=== PATIENT | female | born 2000 | race African-American/Black ===

== ENCOUNTER 2023-04-15 13:32 | Emergency (ER) | payer MEDICAID ==
[~2023-04-15] VITALS: Ht 162.6 cm; Wt 63.0 kg
[2023-04-15] MEDS ORDERED: ALBUTEROL (0.083%) 2.5MG/3ML NEB HHN STA (16:11)
[2023-04-15] MEDS ORDERED: PREDNISONE 20MG TABLET PO STA (16:11)
[2023-04-15] MEDS ORDERED: P50 MT (16:12)
[2023-04-15] MEDS ORDERED: ALBU05 NEB (16:12)
[2023-04-15] MEDS ORDERED: ALBU6.7H3 INH (16:12)
[2023-04-15 17:16] VITALS: BP 121/77
== END 2023-04-15 17:17 | disposition home or self-care (01) ==
LOC: ER 13:32
DX: J45.901 Unspecified asthma with (acute) exacerbation (principal)
CPT/HCPCS: 71045; 94640; 99283; J7512; Z7610

== ENCOUNTER 2023-04-18 10:39 | Emergency (ER) | payer MEDICAID ==
[~2023-04-18] VITALS: Ht 157.5 cm; Wt 62.1 kg
[~2023-04-18 10:39] MED LIST: ALBU05 NEB; ALBU6.7H3 INH; P50 MT
[2023-04-18 10:43] VITALS: BP 143/106
[2023-04-18] MEDS ORDERED: NEBU-281 MC (11:33)
== END 2023-04-18 11:43 | disposition home or self-care (01) ==
LOC: ER 10:39
DX: Z00.00 Encounter for general adult medical examination without abnormal findings (principal); Z79.899 Other long term (current) drug therapy
CPT/HCPCS: 99281

== ENCOUNTER 2024-08-15 14:44 | Emergency (ER) | payer MEDICAID ==
[~2024-08-15] VITALS: Ht 157.5 cm; Wt 73.0 kg
[~2024-08-15 14:44] MED LIST changes: +NEBU-281 MC
[2024-08-15 14:47] VITALS: BP 161/102; PULSE 103; RESP 16; TEMP 99; O2SAT 99
[2024-08-15 16:22] LABS: BASOPHILS % 0.2 % (0.0-2.0); EOSINOPHILS % 0.6 % (0.0-5.0); HEMATOCRIT. 42.7 % (36.0-48.0); HEMOGLOBIN. 14.3 g/dL (12.0-16.0); LYMPHOCYTES % 11.2 % (20.0-50.0); MEAN CORPUSCULAR HEMOGLOBIN 29.8 pg (28.0-32.0); MEAN CORPUSCULAR HGB CONC 33.5 g/dL (31.0-37.0); MEAN CORPUSCULAR VOLUME 88.8 fL (81.0-99.0); MEAN PLATELET VOLUME 8.5 fl (7.4-10.4); MONOCYTES % 6.1 % (2.0-8.0); NEUTROPHILS % 81.9 % (40.0-76.0); PLATELET 301 x1000/uL (130-400); RED CELL DISTRIBUTION WIDTH 12.9 % (11.6-14.6); WHITE BLOOD COUNT 13.1 x1000/uL (4.5-11.0)
[2024-08-15 16:33] LABS: CHLORIDE 100 mEq/L (98-107); POTASSIUM 3.8 mEq/L (3.5-5.1); SODIUM 134 mEq/L (136-145)
[2024-08-15 16:34] LABS: CALCIUM 10.1 mg/dL (8.7-10.4); CARBON DIOXIDE 28 mEq/L (21-32)
[2024-08-15 16:39] LABS: CREATININE 0.8 mg/dL (0.6-1.0); GLUCOSE 84 mg/dL (70-105); UREA NITROGEN BLOOD 11 mg/dL (9-23)
[2024-08-15] MEDS: LIDOCAINE HCL 1% 20ML VIAL INFIL ONE (18:39)
[2024-08-15] MEDS: POVIDONE-IODINE 10% TOPICAL SOLN 240ML TOP ONE (18:39)
[2024-08-15] MEDS ORDERED: SULF1TAB48 MT (20:12)
[2024-08-15] MEDS: HYDROCODONE/ACETAMINOPHEN 5/325MG TABLET PO NR (21:33)
== END 2024-08-15 21:34 | disposition home or self-care (01) ==
LOC: ER 14:44
DX: N75.8 Other diseases of Bartholin's gland (principal); J45.909 Unspecified asthma, uncomplicated
CPT/HCPCS: 80048; 85025; 36415; 56420; 99284; Z7610